=== PATIENT | female | born 1975 | race Hispanic/Latino ===

== ENCOUNTER 2024-07-08 11:44 | Emergency (ER) | payer BC ==
[~2024-07-08] VITALS: Ht 134.6 cm; Wt 57.6 kg
[2024-07-08] MEDS ORDERED: KETOROLAC TROMETHAMINE 30 MG/ML VIAL ONE (12:12)
[2024-07-08] MEDS: SODIUM CHLORIDE 0.9% 1000ML 1,000 ML IV ONE ×2 (12:20→13:07)
[2024-07-08] MEDS: KETOROLAC TROMETHAMINE 30 MG/ML VIAL IV STA (12:20)
[2024-07-08] MEDS: ONDANSETRON HCL INJ 2MG/ML 2ML 2 MG/ML VIAL IV STA (12:20)
[2024-07-08] MEDS ORDERED: ACETAMINOPHEN 325 MG TAB ONE (12:58)
[2024-07-08] MEDS ORDERED: SODIUM CHLORIDE 0.9% 1000ML 1,000 ML ONE (12:58)
[2024-07-08] MEDS: ACETAMINOPHEN 325 MG TAB PO ONE (13:07)
[2024-07-08 13:39] VITALS: PULSE 98; RESP 16; TEMP 98.9; O2SAT 93
[2024-07-08] MEDS ORDERED: ONDANSETRON ODT4 MG PO (13:51)
== END 2024-07-08 13:58 | disposition home or self-care (01) ==
LOC: FSED 11:56
DX: R50.9 Fever, unspecified (principal); J10.1 Influenza due to other identified influenza virus with other respiratory manifestations; R05.9 Cough, unspecified; R11.2 Nausea with vomiting, unspecified; Z11.52 Encounter for screening for COVID-19
CPT/HCPCS: 0223U; 80053; 83518; 85025; 87400; 96374; 96375; 99284; J1885; J2405; J7030